=== PATIENT | female | born 1995 | race Caucasian/White ===

== ENCOUNTER 2023-03-08 21:46 | Emergency (ER) | payer OTHER ==
--- OUTSIDE RECORDS SUMMARY | 2023-03-08 21:49 | XMS REPORT | Continuity of Care Document ---
:1995 Author Organization [facility] t Address [address] [place] [address] Care Team Providers Name Role Phone PCP, PATIENT DOES NOT HAVE A Primary Care Physician MELVIN White Attending Clinician Unavailable Nurse, [facility] Attending Clinician Unavailable Melvin Ireland MD Attending Clinician DARION CEDEÑO Attending Clinician Unavailable RINA MERCADO Attending Clinician Unavailable Doctor Unassigned, [place] Attending Clinician Unavailable Payers Payer Name Policy Type Policy Number Effective Date Expiration Date S [place] CIGNA II [id number] 2013 00:00:00 2021 00:0 0:00 Problems Condition Condition Condition Status Onset Resolution Last Treating Co mments Source Name Details Category Date Date Treatment Clinician Date No known No known Disease Unive rs active active ity of problems problems [facility] Allergies, Adverse Reactions, Alerts Allergy Allergy Status Severity Reaction(s) Onset Inactive Treating Comm ents Source Name Type Date Date Clinician NO KNOWN Drug Active Univers ALLERGIE Class ity of S [facility] Social History Social Habit Start Date Stop Date Quantity Comments Source Exposure to Not sure University SARS-CoV-2 [facility] [place] [facility] (event) [place] Tobacco use and 2020-08-04 2020-08-04 Never used Universit y of exposure 00:00:00 00:00:00 [facility] Alcohol intake 2020-08-04 2020-08-04 Current drinker Unive rsity of 00:00:00 00:00:00 of alcohol [facility] [place] [facility] (finding) [place] Alcohol Comment 2015-12-18 2015-12-18 social drinking Univ ersity of 00:00:00 00:00:00 [facility] Sex Ass[birth year] Universit y of 00:00:00 00:00:00 [place] [facility] [place] Smoking Status Start Date Stop Date Source Never smoker [facility] Medications Ordered Filled Start Stop Current Ordering Indication Dosage Frequency Signature Comments Components Source Medication Medication Date Date Medication? Clinician (SIG) Name Name levonorgest 2017-06 Yes 1{tbl} Take 1 Un luz maria rel-ethinyl 0-01 tablet by ity of estradiol 00:00: mouth [place] 0.1-20 00 daily. Medical mg-mcg per Branch tablet levonorgest 2017-06 2020- No 1{tbl} Take 1 U nivers rel-ethinyl 0-01 10-07 tablet by it y of estradiol 00:00: 00:00 mouth [place] 0.1-20 00 :00 daily. Medical mg-mcg per Branch tablet levonorgest 2017-06- No 1{tbl} Take 1 U nivers rel-ethinyl 0-01 10-07 tablet by it y of estradiol 00:00: 00:00 mouth [place] 0.1-20 00 :00 daily. Medical mg-mcg per Branch tablet metroNIDAZO Yes 500mg Take 1 Uni vers LE 500 mg 6-06 tablet by ity o f tablet 00:00: mouth 2 [place] 00 (two) Medical times Branch daily. metroNIDAZO 2020- No 500mg Take 1 Un luz maria LE 500 mg 6-06 10-07 tablet by ity of tablet 00:00: 00:00 mouth 2 [place] 00 :00 (two) Medical times Branch daily. metroNIDAZO 2020- No 500mg Take 1 Un luz maria LE 500 mg 6-06 10-07 tablet by ity of tablet 00:00: 00:00 mouth 2 [place] 00 :00 (two) Medical times Branch daily. lidocaine 5 Yes [id number] Apply to Univers % ointment 6-04 area(s) 3 ity of 00:00: (three) [place] 00 times Medical daily as Branch needed (burning). traMADOL 50 Yes [id number] 50mg Take 1 Univers mg tablet 6-04 tablet by ity o f 00:00: mouth [place] 00 every 6 Medical (six) Branch hours as needed for Pain (scale 7-10). lidocaine 5 Yes [id number] Apply to Univers % ointment 6-04 area(s) 3 ity of 00:00: (three) [place] 00 times Medical daily as Branch needed (burning). lidocaine 5 2017-0 Yes [id number] Apply to Univers % ointment 6-04 area(s) 3 ity of 00:00: (three) [place] 00 times Medical daily as Branch needed (burning). lidocaine 5 2017-0 Yes [id number] Apply to Univers % ointment 6-04 area(s) 3 ity of 00:00: (three) [place] 00 times Medical daily as Branch needed (burning). lidocaine 5 2017-0 Yes [id number] Apply to Univers % ointment 6-04 area(s) 3 ity of 00:00: (three) [place] 00 times Medical daily as Branch needed (burning). lidocaine 5 2017-0 Yes [id number] Apply to Univers % ointment 6-04 area(s) 3 ity of 00:00: (three) [place] 00 times Medical daily as Branch needed (burning). traMADOL 50 2020- No [id number] 50mg Take 1 Univers mg tablet 6- 10-07 tablet by ity of 00:00: 00:00 mouth [place] 00 :00 every 6 Medical (six) Branch hours as needed for Pain (scale 7-10). traMADOL 50 2020- No [id number] 50mg Take 1 Univers mg tablet - 10-07 tablet by ity of 00:00: 00:00 mouth [place] 00 :00 every 6 Medical (six) Branch hours as needed for Pain (scale 7-10). Immunizations Ordered Filled Immunization Date Status Comments [facility] e Immunization Name Name HPV9 2020-12-06 Completed University of 00:00:00 [facility] SARS-COV-2 COVID-19 2020-09-01 Completed Unive rsity of PFIZER VACCINE 00:00:00 [facility] Pfizer COVID-19 Pfizer COVID-19 2020-09-01 Completed Vaccine Vaccine 00:00:00 SARS-COV-2 COVID-19 2020-08-15 Completed Unive rsity of PFIZER VACCINE 00:00:00 [facility] Pfizer COVID-19 Pfizer COVID-19 2020-08-15 Completed Vaccine Vaccine 00:00:00 HPV9 2020-08-04 Completed University of 00:00:00 [facility] HPV9 2020-08-04 Completed University of 00:00:00 [facility] PPD (TB) 2020-04-25 Completed University of 00:00:00 [facility] PPD (TB) 2020-04-25 Completed University of 00:00:00 [facility] PPD (TB) 2020-04-25 Completed University of 00:00:00 [facility] Influenza Virus 2020-03-29 Completed Universit y of Vaccine Quad .5 mL 00:00:00 [facility] [place] [facility] 6+ MO Branch HPV9 2020-03-29 Completed University of 00:00:00 [facility] Influenza Virus 2020-03-29 Completed Universit y of Vaccine [place] .5 mL 00:00:00 [facility] [place] [facility] 6+ MO Branch HPV9 2020-03-29 Completed University of 00:00:00 [facility] Influenza Virus 2020-03-29 Completed Universit y of Vaccine [place] .5 mL 00:00:00 [facility] [place] [facility] 6+ MO Branch HPV9 2020-03-29 Completed University of 00:00:00 [facility] Influenza Virus 2020-03-29 Completed Universit y of Vaccine [place] .5 mL 00:00:00 [facility] 6+ MO Branch HPV9 2020-03-29 Completed University of 00:00:00 [facility] Influenza Virus 2020-03-29 Completed Universit y of Vaccine Quad .5 mL 00:00:00 [facility] 6+ MO Branch HPV9 2020-03-29 Completed University of 00:00:00 [facility] Vital Signs Vital Name Observation Time Observation Value Comments Source Body temperature 2020-12-06 14:10:00 36.67 [facility] Body height 2020-12-06 14:10:00 167.6 cm [facility] Body weight 2020-12-06 14:10:00 70.806 kg [facility] BMI 2020-12-06 14:10:00 25.20 kg/m2 [facility] Systolic blood 2020-12-06 14:10:00 134 mm[Hg] Univer sity of pressure [facility] Diastolic blood 2020-12-06 14:10:00 84 mm[Hg] Unive rsity of pressure [facility] Heart rate 2020-12-06 14:10:00 74 /min Universi ty [facility] [place] [facility] Systolic blood 2020-08-04 15:00:00 118 mm[Hg] Univer sity of pressure [facility] [place] [facility] Branch Diastolic blood 2020-08-04 15:00:00 81 mm[Hg] Unive rsity of pressure [facility] [place] [facility] Branch Heart rate 2020-08-04 15:00:00 84 /min Universi ty of [facility] Body temperature 2020-08-04 15:00:00 36.39 Leslee Univ ersity of [facility] Respiratory rate 2020-08-04 15:00:00 17 /min Univ ersity of [facility] Body height 2020-08-04 15:00:00 168.9 cm Universi ty of [facility] Body weight 2020-08-04 15:00:00 69.945 kg Universi ty of [facility] BMI 2020-08-04 15:00:00 24.52 kg/m2 Universi ty of [facility] Systolic blood 2020-03-29 13:57:00 124 mm[Hg] Univer sity of pressure [facility] [place] [facility] Branch Diastolic blood 2020-03-29 13:57:00 79 mm[Hg] Unive rsity of pressure [facility] [place] [facility] Branch Heart rate 2020-03-29 13:57:00 82 /min Universi ty of [facility] Body temperature 2020-03-29 13:57:00 36.39 Leslee Univ ersity of [facility] Body height 2020-03-29 13:57:00 167.6 cm Universi ty of [facility] Body weight 2020-03-29 13:57:00 70.081 kg Universi ty of [facility] [place] [facility] Branch BMI 2020-03-29 13:57:00 24.94 kg/m2 Universi ty of [facility] [place] [facility] Branch Procedures Procedure Date / Time Performed Performing Clinician Sourc e GARDASIL 9 (HPV 9V) 2020-12-06 14:16:23 Melvin Ireland Univer sity of [facility] GARDASIL 9 (HPV 9V) 2020-08-04 15:10:33 Melvin Ireland Univer sity of [place] VACCINE [facility] - 2020-04-25 06:01:00 [facility]igned, [facility] (HPV 9V) 2020-03-29 14:24:22 ShuHilda phelanestella [facility] VACCINE [facility] Branch FLU VACC ([id number]), 2020-03-29 14:24:22 [facility] 6+ MONTHS, IM, QUAD Medical Bran ch ASSIGNMENT OF BENEFITS 2020-03-29 13:48:49 Doctor Unassigned, No [facility] Encounters Start End Encounter Admission Attending Care Care Encounter Source Date/Time Date/Time Type Type Clinicians Facility Department ID 2021-05-30 2021-05-30 [id number] Univers 09:15:00 09:15:00 [facility] 2020-12-06 2020-12-06 Outpatient R [facility] [id number] Univers 09:30:00 09:30:00 ity [facility] 2020-12-06 2020-12-06 Nurse Nurse, Rajat [facility] [id number] Univers 08:58:52 09:26:46 Visit Shu Mapp [facility] [id number] ity of [place] [id number] [facility] [phone] [address] Office Building 2020-09-05 2020-09-05 Outpatient Sissy CEDEÑO [facility] [id number] Univers 12:50:00 12:50:00 DARION [facility] 2020-09-01 2020-09-01 [facility] [id number] Univers 08:30:00 08:30:00 DARION [facility] 2020-09-01 2020-09-01 Outpatient GCCOVIDV GCCOVIDV [id number] GCCOVID 00:00:00 00:00:00 V 2020-08-15 2020-08-15 Outpatient Sissy CEDEÑO [facility] [id number] Univers 13:20:00 13:20:00 DARION [facility] 2020-08-15 2020-08-15 Outpatient GCCOVIDV GCCOVIDV [id number] GCCOVID 00:00:00 00:00:00 V 2020-08-04 2020-08-04 Nurse Nurse, Rajat [facility] [id number] Univers 08:46:31 09:06:01 [facility] [id number] [id number] [phone] [address] Office Building 2020-08-04 2020-08-04 [facility] [id number] Univers 09:00:00 09:00:00 HEMAMALINI ity [facility] 2020-04-27 2020-04-27 [facility] [id number] Univers 13:30:00 13:30:00 [facility] 2020-04-25 2020-04-25 Outpatient Sissy MERCADO [facility] [id number] Univers 13:30:00 13:30:00 [facility] 2020-04-25 2020-04-25 Orders Doctor COREEN [id number] Univers 00:00:00 00:00:00 Only Unassigned, RODY [id number] ity of [place] [facility] [id number] [place] [id number] [address] 2020-03-29 2020-03-29 [facility] [id number] Univers 08:51:02 09:06:02 Visit [facility] [id number] [id number] [phone] [address] Office Building 2020-03-29 2020-03-29 [facility]patient [facility] [id number] Univers 09:00:00 09:00:00 [facility] 2020-03-29 2020-03-29 Orders Doctor COREEN [id number] Univers 00:00:00 00:00:00 Only Unassigned, RODY [id number] ity of [place] [facility] [id number] [place] [id number] Medi amira 009 Branch Results This patient has no known results.
[2023-03-08 22:17] LABS: Specific Gravity 1.026 (1.005-1.030)
[2023-03-08 22:20] LABS: Specific Gravity 1.026 (1.005-1.030); Urine Bacteria <20 /HPF (<20); Urine Bilirubin NEGATIVE (Negative); Urine Blood 3+ (OVER) (Negative); Urine Clarity Extremely Turbid (Clear); Urine Color Yellow (Yellow); Urine Glucose NEGATIVE (Negative); Urine Mucus Slight /HPF (None Seen); Urine Protein 2+ (Negative); Urine RBC >50 /HPF (None Seen); Urine Urobilinogen Normal (Normal); Urine WBC Clump Rare /HPF (None Seen)
--- NOTE | 2023-03-08 22:35 | EDPHYS ---
Physician Documentation [facility] Name: Chelo Escalera Age: 27 yrs Sex: Female : 1995 Arrival Date: 03/08/2023 Time: 21:46 Bed 12 Private MD: ED Physician Edgar Santizo HPI: 03/08 21:53 This 27 yrs old Female presents to ER via Unassigned with complaints of sp4 dysuria . 22:02 27-year-old female presents with an acute onset of pain on urination/dysuria. This sp4 started this morning, urine appears cloudy, nonbloody, last menstrual period started yesterday. No history of prior medical problems. No allergies, no current medications. . 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 - Social history:: Smoking status: Reported history of juuling and/or vaping. ROS: 22:08 Constitutional: Negative for fever, chills, and weight loss, : Negative for injury, sp4 bleeding, discharge, and swelling, positive dysuria 22:08 All other systems are negative. Exam: 22:08 Constitutional: This is a well developed, well nourished patient who is awake, alert, sp4 and in no acute distress. Head/Face: Normocephalic, atraumatic. Eyes: Pupils equal round and reactive to light, extra-ocular motions intact. Lids and lashes normal. Conjunctiva and sclera are not injected. Cornea within normal limits. Periorbital areas with no swelling, redness, or edema. ENT: Nares patent. No nasal discharge, no septal abnormalities noted. Tympanic membranes are normal and external auditory canals are clear. Oropharynx with no redness, swelling, or masses, exudates, or evidence of obstruction, uvula midline. Mucous membranes moist. Neck: Trachea midline, no thyromegaly or masses palpated, and no cervical lymphadenopathy. Supple, full range of motion without nuchal rigidity, or vertebral point tenderness. Chest/axilla: Normal chest wall appearance and motion. Nontender with no deformity. No lesions are appreciated. Cardiovascular: Regular rate and rhythm with a normal S1 and S2. No gallops, murmurs, or rubs. Normal PMI, no JVD. No pulse deficits. Respiratory: Lungs have equal breath sounds bilaterally, clear to auscultation and percussion. No rales, rhonchi or wheezes noted. No increased work of breathing, no retractions or nasal flaring. Abdomen/GI: Soft, non-tender, with normal bowel sounds. No distension or tympany. No guarding or rebound. No evidence of tenderness throughout. Back: No spinal tenderness. No costovertebral tenderness. Skin: Warm, dry with normal turgor. Normal color with no rashes, no lesions, and no evidence of cellulitis. MS/ Extremity: Pulses equal, no cyanosis. Neurovascular intact. Full, normal range of motion. Neuro: Awake and alert, GCS 15, oriented to person, place, time, and situation. Cranial nerves II-XII grossly intact. Motor strength 5/5 in all extremities. Sensory grossly intact. Psych: Awake, alert, with orientation to person, place and time. Behavior, mood, and affect are within normal limits Vital Signs: 22:05 BP 116 / 74 LA Sitting; Pulse 87; Resp 16; Temp 99.1(O); Pulse Ox 100% on R/A; Weight wm 69.4 kg; Height 5 ft. 6 in. ; Pain 3/10; 22:05 Body Mass Index 24.69 (69.40 kg, 167.64 cm) 22:05 Pain Scale: Adult wm MDM: 21:53 Patient medically screened. sp4 22:08 Differential Diagnosis UTI, candidiasis, rashes, lesions, urethritis. Data reviewed: sp4 vital signs, nurses notes, lab test result(s), urinalysis. 22:10 Data reviewed: lab test result(s), urinalysis. sp4 22:33 ED course: The UA suggests early UTI will treat with Macrobid. . sp4 03/08 21:53 Order name: Test, Urine; Complete Time: 22:29 sp4 03/08 21:53 Order name: Urinalysis W/Microscopic; Complete Time: 22:29 sp4 03/08 22:23 Order name: Urine Culture EDMS Administered Medications: 22:45 Drug: Phenazopyridine PO 200 mg Route: PO; pf1 22:54 Follow up: Response: No adverse reaction; Marked relief of symptoms pf1 22:45 Drug: Ibuprofen PO 600 mg Route: PO; pf1 22:54 Follow up: Response: No adverse reaction pf1 22:45 Drug: Macrobid PO 100 mg Route: PO; pf1 22:54 Follow up: Response: No adverse reaction pf1 Disposition Summary: 03/08/23 22:34 Discharge Ordered Location: Home sp4 Problem: new sp4 Symptoms: have improved sp4 Condition: Stable sp4 Diagnosis - UTI/ Urinary tract infection, site not specified sp4 - Acute lower UTI with urethritis sp4 Followup: sp4 - With: Private Physician - When: 5 - 6 days - Reason: Recheck today's complaints Discharge Instructions: - Discharge Summary Sheet sp4 - Urinary Tract Infection, Adult sp4 Forms: - Patient Portal Instructions sp4 Prescriptions: - phenazopyridine 200 mg Oral tablet - take 1 tablet by ORAL route 3 times per day for 3 days as needed for pain; 9 sp4 tablet; Refills: 0, Product Selection Permitted - Macrobid 100 mg Oral Capsule - take 1 capsule by ORAL route every 12 hours for 10 days; 20 capsule; Refills: sp4 0, Product Selection Permitted Signatures: Dispatcher [employer] EDMS Rubia Randhawa RN RN [id number] Naila Perez RN RN pf1 Edgar Santizo MD MD sp4 Corrections: (The following items were deleted from the chart) 22:10 22:08 Data reviewed: vital signs, nurses notes, lab test result(s), urinalysis, sp4 bacteruria, hematuria, pyuria, sp4
--- NOTE | 2023-03-08 22:35 | ER ---
Nurse's Notes [facility] Name: Chelo Escalera Age: 27 yrs Sex: Female : 1995 Arrival Date: 03/08/2023 Time: 21:46 Bed 12 Private MD: Diagnosis: UTI/ Urinary tract infection, site not specified;Acute lower UTI with urethritis Presentation: 03/08 21:53 Chief complaint: Patient states: Pt reports pain with urination, urinary frequency and kb3 hesitancy since this morning. Coronavirus screen: Vaccine status: Patient reports receiving the 2nd dose of the covid vaccine. Client denies travel out of the [place] in the last 14 days. Ebola Screen: Patient negative for fever greater than or equal to 101.5 degrees Fahrenheit, and additional compatible Ebola Virus Disease symptoms Patient denies exposure to infectious person. Patient denies travel to an Ebola-affected area in the 21 days before illness onset. Initial Sepsis Screen: Does the patient meet any 2 criteria? No. Patient's initial sepsis screen is negative. Does the patient have a suspected source of infection? No. Patient's initial sepsis screen is negative. Risk Assessment: Do you want to hurt yourself or someone else? Patient reports no desire to harm self or others. Onset of symptoms was March 08, 2023. 21:53 Method Of Arrival: Ambulatory kb3 21:53 Acuity: CLARITZA 3 kb3 Triage Assessment: 21:54 General: Appears in no apparent distress. Behavior is calm, cooperative. Pain: kb3 Complains of pain in pelvis Pain does not radiate. Pain currently is 2 out of 10 on a pain scale. Quality of pain is described as burning, sharp, Pain began 1 day ago. Is episodic. : Reports burning with urination, pain urgency, urinary frequency. 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 - Social history:: Smoking status: Reported history of juuling and/or vaping. Screenin:56 [facility] ED Fall Risk Assessment (Adult) History of falling in the last 3 months, kb3 including since admission No falls in past 3 months (0 pts). Abuse screen: Denies threats or abuse. Denies injuries from another. Nutritional screening: No deficits noted. Tuberculosis screening: No symptoms or risk factors identified. Assessment: 21:56 General: See triage note. kb3 21:58 General: Ambulatory to restroom, urine specimen collected. kb3 Vital Signs: 22:05 BP 116 / 74 LA Sitting; Pulse 87; Resp 16; Temp 99.1(O); Pulse Ox 100% on R/A; Weight wm 69.4 kg; Height 5 ft. 6 in. ; Pain 3/10; 22:05 Body Mass Index 24.69 (69.40 kg, 167.64 cm) wm 22:05 Pain Scale: Adult ED Course: 21:53 Patient arrived in ED. kb3 21:53 Edgar Santizo MD is Attending Physician. sp4 21:54 Triage completed. kb3 21:54 Arm band placed on right wrist. kb3 21:56 Patient has correct armband on for positive identification. Provided Education on: Plan kb3 of care, clean catch urine. 21:56 No provider procedures requiring assistance completed. Patient did not have IV access kb3 during this emergency room visit. 22:05 Urine collected: clean catch specimen, cloudy. wm 22:15 Bed in low position. Call light in reach. Side rails up X 1. wm 22:15 Urinalysis W/Microscopic Sent. wm 22:15 Test, Urine Sent. wm Administered Medications: 22:45 Drug: Phenazopyridine PO 200 mg Route: PO; pf1 22:54 Follow up: Response: No adverse reaction; Marked relief of symptoms pf1 22:45 Drug: Ibuprofen PO 600 mg Route: PO; pf1 22:54 Follow up: Response: No adverse reaction pf1 22:45 Drug: Macrobid PO 100 mg Route: PO; pf1 22:54 Follow up: Response: No adverse reaction pf1 Medication: 21:56 VIS not applicable for this client. kb3 Outcome: 22:34 Discharge ordered by . sp4 22:54 Discharged to to work pf1 22:54 Condition: stable 22:54 Discharge instructions given to patient, Instructed on discharge instructions, follow up and referral plans. Demonstrated understanding of instructions, follow-up care, medications, Prescriptions given X 2. 22:55 Patient left the ED. pf1 Signatures: Shanae Rodriguez Kelly, RN RN kb3 Naila Perez RN RN pf1 Edgar Santizo MD MD sp4
[2023-03-08] MEDS ORDERED: IBUPROFEN 400 MG TAB ONE (23:01)
[2023-03-08] MEDS ORDERED: IBUPROFEN 200 MG TAB PO ONE (23:01)
[2023-03-08] MEDS ORDERED: NITROFURAN MACRO 100 MG CAP PO ONE (23:02)
[2023-03-08] MEDS ORDERED: PHENAZOPYRIDINE 100MG TAB PO ONE (23:02)
[2023-03-08 23:23] VITALS: BP 116/74; TEMP 99.1; O2SAT 100
== END 2023-03-08 22:55 | disposition home or self-care (01) ==
LOC: ER 21:46
DX: N39.0 Urinary tract infection, site not specified (principal)
CPT/HCPCS: 81001; 81025; 87086; 87088; 99283